=== PATIENT | male | born 1985 | race Caucasian/White ===

== ENCOUNTER 2017-02-27 14:02 | Emergency (ER) | payer OTHER ==
[~2017-02-27] VITALS: Ht 172.7 cm; Wt 111.4 kg
[2017-02-27 18:00] VITALS: BP 142/90
== END 2017-02-27 18:04 | disposition home or self-care (01) ==
LOC: EMS 14:04
DX: G89.29 Other chronic pain (principal); M54.5 Low back pain; R03.0 Elevated blood-pressure reading, without diagnosis of hypertension; F17.210 Nicotine dependence, cigarettes, uncomplicated
CPT/HCPCS: 99283